=== PATIENT | female | born 1975 | race Caucasian/White ===

== ENCOUNTER → 2017-04-30 | Outpatient (CLI) | payer OTHER ==
--- NOTE | 2017-04-30 11:59 | SWALLOWING EVALUATION ---
HISTORY: This 41 year-old woman was referred for a VFSS at [facility] in order to address concerns of increasing cough and trouble swallowing meats. The patient has a PMH significant for multiple sclerosis, migraines, sinus infections, and GERD. Currently the patient's diet level is regular. PROCEDURE: The patient was seen in the Radiology Department of [facility] for the VFSS. Cursory examination of the oral cavity revealed adequate. Movement of the articulators was WNL. The patient was seated on a stool and was viewed in both the Anterior-Posterior (A-P) and Lateral planes. Volitional phonation exercises completed in the A-P plane revealed bilateral vocal fold movement and vocal intensity within functional limits. Vocal quality was noted to be slightly harsh; patient stated this is typical. In the lateral plane, the patient was given the following boluses: 1 tsp. thin liquid barium x 2, single swallow thin liquid barium self-presented from a cup, sequential swallows of thin liquid barium self-presented from a cup, 1 tsp. nectar-thick liquid barium, single swallow nectar-thick liquid barium self-presented from a cup, sequential swallows nectar-thick liquid barium self-presented from a cup, 1 tsp. barium pudding, and 1 club cracker with barium pudding. The patient was then repositioned into the A-P plane and given 1 tsp. barium pudding. RESULTS: Oral Stage: Labial closure was adequate. The bolus was held in a cohesive bolus between the tongue and palatal seal. Mastication was timely and efficient. Bolus transport was completed with a brisk tongue motion. There was complete oral clearance of the bolus. Pharyngeal swallow was slightly delayed with the bolus head at the level of the valleculae at the initiation of the swallow. Pharyngeal Stage: Soft palate elevation was complete. There was complete superior movement of the thyroid cartilage with complete approximation of the arytenoids to the base of the epiglottis. There was partial anterior excursion of the hyoid. Epiglottic inversion was complete. Laryngeal vestibular closure was complete at the height of the swallow. Pharyngeal stripping wave was complete. Pharyngeal contraction was complete. Pharyngoesophageal segment (PES) opening had partial distension with partial obstruction of flow. Tongue base retraction was complete. There was complete pharyngeal clearance of the boluses. Patient did not penetrate or aspirate for any of the boluses during the study. There were mild problems (as noted above) in the pharyngeal stage, but are considered to be functional given the patient's condition and lack of penetration and aspiration. Esophageal Stage: There was moderate retention in the esophagus. SUMMARY/RECOMMENDATIONS: This patient presents with mild pharyngeal dysphagia characterized by reduced hyoid excursion and partial obstruction of the PES. The patient presents with some esophageal dysfunction. The following is recommended: 1. Slippery regular diet. Choose foods that are loose, moist, and slippery. Avoid foods that are thick, pasty, and doughy. Use condiments as necessary to make foods slippery. 2. GERD precautions: patient should be seated fully upright during and for 30 minutes after meal. Take small bites and small sips, alternating solids and liquids. Avoid eating right before bed. Head of bed should be elevated to at least 30 degrees. 3. Patient may benefit from consultation with GI doctor. A summary of the results and recommendations was discussed with patient and written material was provided. An understanding was verbalized with the patient immediately following the study. Thank you for referral of this patient. Please contact me at if any additional information is needed. Zenaida Vance [facility]
--- NOTE | 2017-04-30 12:45 | DIAGNOSTIC IMAGING REPORT ---
VIDEO SWALLOW STUDY CLINICAL HISTORY: Multiple sclerosis. Migraine headache. COMPARISON STUDY: No priors. Fluoroscopic time: 1.9 minutes. FINDINGS: Fluoroscopic guidance is provided to the Department of Speech Pathology in performing a video swallow study. The patient consumed barium-impregnated cracker with paste, pudding, nectar thick liquid, and thin barium while the swallowing mechanism was observed in real-time. No penetration or aspiration was seen with any of the sampled textures. A hiatal hernia is noted. IMPRESSION: No penetration or aspiration was seen with any of the sampled textures. See dedicated speech pathology report for detailed findings and recommendations. Dictated: 04/30/2017 11:28 AM Transcribed: 04/30/2017 12:45 PM [email or web address]_[email or web address] Electronically signed by: Gael Restrepo M.D. 04/30/2017 1:29 PM Dictated Date/Time: 04/30/2017 11:28 AM
== END | disposition home or self-care (01) ==
LOC: C.RAD 10:29
PROVIDERS: ATTEND Internal Medicine
DX: G35 Multiple sclerosis (principal); G43.109 Migraine with aura, not intractable, without status migrainosus

== ENCOUNTER → 2017-05-28 | Day surgery (SDC) | payer OTHER ==
[2017-05-27 14:01] VITALS: Ht 167.6 cm; Wt 124.1 kg
[~2017-05-28] VITALS: Ht 167.6 cm; Wt 124.1 kg
[~2017-05-28] MED LIST: BUPRTAB51 PO; CARV12.52 PO; DICY20TA35 PO; DULO60CA44 PO; ERGO500037 PO; FURO20TA PO; GLAT1INJ INJ; LIDOCAINE HCL 2% 2 ML VIAL (20MG/ML) ONE; MELO15TA4 PO; PRLSR20 PO; PROPOFOL IV EMULSION 10 MG/ML 20 ML VIAL IV ONE; RAMI5CAP32 PO; TOPI50TA16 PO
--- NOTE | 2017-05-28 08:32 | Endo History and Physical ---
History & Physical Date of Service: May 28, 2017. Chief Complaint: Referring Physician: History of Present Illness 41 yo with mild dysphagia and GERD presenting for EGD. Symptoms of pyrosis are refractory to prilosec 20 bid. Past Surgical History Hx Cardiac Surgery: Yes (HEART CATH, NO STENTS) Hx Internal Defibrillator: No Hx Pacemaker: No Hx Abdominal Surgery: Yes ( X2) Hx of Implantable Prosthesis: No Hx Post-Op Nausea and Vomiting: No Hx Cancer Surgery: No Hx Thoracic Surgery: No Hx Orthopedic: Yes (RT LEG VERICOSE VEIN SURGERY, RT SHOULDER, LOWER BACK RHIZOTOMY) Hx Urinary Tract Surgery: No Family History None Social History Smoking Status: Never Smoker Hx Substance Use: No Hx Alcohol Use: No Allergies Coded Allergies: Ofloxacin (Verified Allergy, Unknown, RASH, 05/28/17) Current Medications Reported Home Medications Medications Dose Route/Sig Max Daily Dose Days Date Category Dose Instructions Topamax (Topiramate) 50 Mg Tab 50 Mg PO BID 05/27/17 Reported Meloxicam 15 Mg Tab 1 Tab PO QAM 05/27/17 Reported Vitamin D 06258 Unit (Ergocalciferol) 50,000 Unit Cap 50,000 Unit PO WK 05/27/17 Reported Bentyl (Dicyclomine Hcl) 20 Mg Tab 20 Mg PO BID 05/27/17 Reported NEW PRESCRIPTION - HASN'T STARTED YET Cymbalta (Duloxetine Hcl) 60 Mg Cap 60 Mg PO QAM 05/27/17 Reported Wellbutrin Xl (Bupropion Hcl) 300 Mg Tab 300 Mg PO QAM 05/27/17 Reported Altace (Ramipril) 5 Mg Cap 5 Mg PO QAM 05/27/17 Reported Lasix (Furosemide) 20 Mg Tab 10 Mg PO QAM 05/27/17 Reported Copaxone (Glatiramer Acetate) 40 Mg/Ml Inj 40 Mg INJ 3XWK 05/27/17 Reported Prilosec (Omeprazole) 20 Mg Capcr 20 Mg PO BID 05/27/17 Reported Coreg (Carvedilol) 12.5 Mg Tab 12.5 Mg PO BID 05/27/17 Reported Vital Signs Weight (Kilograms): 124.09 Height (Feet): 5 Height (Inches): 6 Physical Exam General Appearance: WD/WN, no apparent distress Respiratory/Chest: Respiratory effort: no dyspnea Auscultation: breath sounds normal, CTA except as noted Cardiovascular: Apical Impulse: not displaced Heart Auscultation: RRR, normal S1, normal S2 Abdomen: Bowel Sounds: normal Inspection & Palpation: soft, non-distended Liver: non-tender Assessment and Plan 41 yo presenting for EGD for GERD and dyspepsia mild dysphagia
--- NOTE | 2017-05-28 09:16 | Discharge Instructions ---
Endoscopy Patient Instructions Date / Procedure(s) Performed May 28, 2017. EGD Allergy Information Coded Allergies: Ofloxacin (Verified Allergy, Unknown, RASH, 05/28/17) Discharge Date / Findings May 28, 2017. Normal Examination Dilation of your esophagus was performed Biopsies of your stomach was performed Biopsies of your small intestine were taken Medication Instructions Stopped Medication(s): Meloxicam, Lasix Provider Instructions Activity Restrictions - No exercising or heavy lifting for 24 hours. - Do not drink alcohol the day of the procedure. - Do not drive a car or operate machinery until the day after the procedure. - Do not make any important decisions or sign important papers in 24 hours after the procedure. Following Day: - Return to full activity which may include returning to work/school. Diet Start your diet with liquids and light foods (jello, soup, juice, toast). Then eat your usual diet if not nauseated. Treatment For Common After Affects For mild abdominal pain, bloating, or excessive gas: - Rest - Eat lightly - Lie on right side Follow-Up Information Follow-up with DR Codi Ribera as scheduled Anesthesia Information What You Should Know You have had a procedure that required some medicine to reduce anxiety and discomfort. This treatment is called moderate sedation. After receiving the treatment, you may be sleepy, but you will be able to breathe on your own. The effects of the treatment may last for several hours. Follow these instructions along with Activity/Diet recommendations noted above: * Do NOT do anything where dizziness or clumsiness would be dangerous. * Rest quietly at home today, then you can be up and about tomorrow. * Have a responsible person stay with you the rest of today. * You may have had an I.V. today. If so, you may take the dressing off later today. Recommendations Call your doctor if: * Trouble breathing * Continuous vomiting for more than 24 hours * Temperature above 101 degrees * Severe abdominal pain or bloating * Pain not relieved by pain medicine ordered * There is increased drainage or redness from any incision * A large amount of rectal bleeding greater than 2-3 tablespoons. (If you had a polyp/s removed or have hemorrhoids, a small amount of blood - from the rectum is to be expected.) * You have any unanswered questions or concerns. IN THE EVENT OF A SERIOUS EMERGENCY, GO TO THE NEAREST EMERGENCY ROOM Your discharge instructions were prepared by provider Denzel Ribera. Patient Instructions Signature Page Stacy Coates Patient (or Guardian) Signature/Date: I have read and understand the instructions given to me by my caregivers. Caregiver/RN/Doctor Signature/Date: The above-named patient and/or guardian has received patient instructions on this date. + Original Patient Signature Page (only) stays with chart. Please make copy for patient.
--- NOTE | 2017-05-28 09:36 | Anesthesiology Progress Note ---
Anesthesia Post Op Note Date & Time May 28, 2017 at 09:35 Vital Signs Pain Intensity: 0 Vital Signs Past 12 Hours Date Time Temp Pulse Resp B/P (MAP) Pulse Ox O2 Delivery O2 Flow Rate FiO2 05/28/17 09:25 81 20 115/58 (77) 98 Room Air 05/28/17 08:15 36.7 71 20 121/87 (98) 99 Room Air Notes Mental Status: alert / awake / arousable, participated in evaluation Pt Amnestic to Procedure: Yes Nausea / Vomiting: adequately controlled Pain: adequately controlled Airway Patency, RR, SpO2: stable & adequate BP & HR: stable & adequate Hydration State: stable & adequate Anesthetic Complications: no major complications apparent
--- NOTE | 2017-05-28 09:36 | GI REPORT ---
Procedure Date: 05/28/2017 8:56 AM Procedure: Upper GI endoscopy Indications: Heartburn Medicines: General Anesthesia Complications: No immediate complications. Estimated blood loss: None. Estimated Blood Loss: Estimated blood loss: none. Procedure: Pre-Anesthesia Assessment: - Pre-Anesthesia Assessment: - Prior to the procedure, a History and Physical was performed, and patient medications, allergies and sensitivities were reviewed. The patient's tolerance of previous anesthesia was reviewed. Please see [employer] for complete details. - The risks and benefits of the procedure and the sedation options and risks were discussed with the patient. All questions were answered and informed consent was obtained. - Patient identification and proposed procedure were verified prior to the procedure by the physician and the nurse. The procedure was verified in the pre-procedure area in the procedure room. After obtaining informed consent, the endoscope was passed carefully and meticuously under direct vision and only advanced when the lumen was clearly identified, C02 insuflation was utilized throughout the entirity of the procedure. Throughout the procedure, the patient's blood pressure, pulse, and oxygen saturations were monitored continuously. After obtaining informed consent, the endoscope was passed under direct vision. Throughout the procedure, the patient's blood pressure, pulse, and oxygen saturations were monitored continuously. The scope was introduced through the mouth, and advanced to the second part of duodenum. The upper GI endoscopy was accomplished without difficulty. The patient tolerated the procedure well. Findings: No endoscopic abnormality was evident in the esophagus to explain the patient's complaint of dysphagia. It was decided, however, to proceed with dilation of the entire esophagus. A guidewire was placed and the scope was withdrawn. Dilation was performed with a Savary dilator with mild resistance at 16 mm. The entire examined stomach was normal. Biopsies were taken with a cold forceps for Helicobacter pylori testing. The examined duodenum was normal. Biopsies for histology were taken with a cold forceps for evaluation of celiac disease. Impression: - No endoscopic esophageal abnormality to explain patient's dysphagia. Esophagus dilated. Dilated. - Normal stomach. Biopsied. - Normal examined duodenum. Biopsied. Recommendation: - Await pathology results. - Discharge patient to home (with escort). - Return to referring physician as previously scheduled. - If symptoms persist, could consider impedance pH testing. - Recommend weight loss Denzel Ribera MD 05/28/2017 9:20:58 AM This report has been signed electronically. Note Initiated On: 05/28/2017 8:56 AM I attest to the content of the Intraoperative Record and orders documented therein, exceptions below
[2017-05-28 09:50] VITALS: BP 103/61; PULSE 70; O2SAT 99
== END | disposition home or self-care (01) ==
LOC: C.GI 07:57
PROVIDERS: ATTEND Internal Medicine
DX: R12 Heartburn (principal); K29.50 Unspecified chronic gastritis without bleeding; K21.9 Gastro-esophageal reflux disease without esophagitis; F41.9 Anxiety disorder, unspecified; E66.01 Morbid (severe) obesity due to excess calories; G35 Multiple sclerosis